=== PATIENT | female | born 1965 | race Caucasian/White ===

== ENCOUNTER 2023-02-06 20:47 | Emergency (ER) | payer SELFPAY ==
[~2023-02-06] VITALS: Ht 170.2 cm; Wt 70.0 kg
[2023-02-06 20:55] VITALS: O2SAT 98
[2023-02-06] MEDS ORDERED: ONDANSETRON HCL 4MG TABLET PO ONE (21:15)
[2023-02-06] MEDS ORDERED: ONDA4TAB50 MT (22:02)
[2023-02-06 22:08] VITALS: BP 169/100; PULSE 72; RESP 20; TEMP 97.8
== END 2023-02-06 23:10 | disposition home or self-care (01) ==
LOC: ER 20:47
DX: A08.4 Viral intestinal infection, unspecified (principal); F41.9 Anxiety disorder, unspecified; F32.A Depression, unspecified
CPT/HCPCS: 99283; Q0162

== ENCOUNTER 2024-11-17 10:17 | Emergency (ER) | payer MEDICAID ==
[~2024-11-17] VITALS: Ht 172.7 cm; Wt 85.0 kg
[~2024-11-17 10:17] MED LIST: ONDA4TAB50 MT
[2024-11-17 10:26] VITALS: O2SAT 99
[2024-11-17 10:28] VITALS: TEMP 36.7; O2SAT 100
[2024-11-17 11:02] VITALS: BP 171/79; PULSE 77; RESP 18
[2024-11-17] MEDS: IBUPROFEN 600MG TABLET PO ONE (11:02)
[2024-11-17] MEDS: TETANUS, DIPHTHERIA, PERTUSSIS VAC/PF 0.5ML (>10YR OLD) IM ONE (11:13)
[2024-11-17] MEDS: LIDOCAINE HCL 1% 20ML VIAL INL ONE (11:35)
[2024-11-17] MEDS: BACITRACIN ZINC OINT UDPKT TOP ONE (11:36)
[2024-11-17] MEDS ORDERED: AMOX1TAB16 MT (13:22)
[2024-11-17] MEDS ORDERED: BO1 TP (13:22)
== END 2024-11-17 13:49 | disposition home or self-care (01) ==
LOC: ER 10:17
DX: S61.451A Open bite of right hand, initial encounter (principal); F41.9 Anxiety disorder, unspecified; Z98.890 Other specified postprocedural states; W54.0XXA Bitten by dog, initial encounter; Y93.89 Activity, other specified; Y92.89 Other specified places as the place of occurrence of the external cause; Y99.8 Other external cause status
CPT/HCPCS: 73130; 90715; 12002; 90471; 99283; J2003; Z7610; 12031